=== PATIENT | male | born 1980 | race Caucasian/White ===

== ENCOUNTER 2020-10-11 15:10 | Emergency (ER) | payer OTHER ==
[2020-10-11] MEDS ORDERED: Bupivacaine 0.5% 10 ML VIAL ONE (15:45)
[2020-10-11] MEDS ORDERED: Lidocaine 1% (PF) 30 ML VIAL ONE (15:45)
[2020-10-11] MEDS ORDERED: Bacitracin 1 PK ONE (17:41)
== END 2020-10-11 18:07 | disposition home or self-care (01) ==
LOC: NAV ERS 15:10
DX: S68.123A Partial traumatic metacarpophalangeal amputation of left middle finger, initial encounter (principal); E03.9 Hypothyroidism, unspecified; W45.8XXA Other foreign body or object entering through skin, initial encounter
CPT/HCPCS: 11760; J2001; J3490